=== PATIENT | male | born 1990 | race Caucasian/White ===

== ENCOUNTER 2017-08-08 01:32 | Emergency (ER) | payer OTHER ==
[2017-08-08 02:12] LABS: #Basophils 0.1 thou/uL (0.0-0.2); #Eosinphils 0.3 thou/uL (0.0-0.7); #Lymphocytes 3.4 thou/uL (1.20-3.40); #Monocytes 0.5 thou/uL (0.11-0.59); #Neutrophils 3.9 thou/uL (1.40-6.50); %Basophils 1.5 % (0.0-1.0); %Eosinophils 3.4 % (0.0-10.0); %Lymphocytes 41.1 % (21.0-51.0); %Monocytes 6.3 % (0.0-10.0); %Neutrophils 47.7 % (42.0-75.0); Hemoglobin 14.2 g/dL (14.0-18.0); Mean Corpuscular HGB CONC 32.6 g/dL (32.0-36.0); Mean Corpuscular Hemoglobin 29.8 pg (27.0-31.0); Mean Corpuscular Volume 91.2 fl (80.0-94.0); Mean Platelet Volume 8.1 fL (7.4-10.4); Platelet Count 199 thou/uL (130-400); RBC Distribution Width 11.4 % (11.5-14.5); Red Blood Cell (RBC) Count 4.77 mill/uL (4.70-6.10); White Blood Cell (WBC) Count 8.1 thou/uL (4.8-10.8)
[2017-08-08 02:13] LABS: ALT (SGPT) 13 U/L (8-55); AST (SGOT) 19 U/L (5-34); Albumin 4.7 g/dL (3.5-5.0); Alkaline Phosphatase 40 U/L (40-150); Anion Gap 15 mmol/L (10-20); BUN (Urea Nitrogen) 17 mg/dL (8.9-20.6); Bilirubin, Total 0.4 mg/dL (0.2-1.2); Calc. Creatinine Clearance 0 mL/min (70-130); Carbon Dioxide 26 mmol/L (22-29); Chloride 104 mmol/L (98-107); Estimated GFR-MDRD 78; Globulin 2.5 g/dL (2.4-3.5); Glucose 107 mg/dL (70-105); Potassium 3.6 mmol/L (3.5-5.1); Protein, Total 7.2 g/dL (6.0-8.3); Sodium 141 mmol/L (136-145)
[2017-08-08] MEDS ORDERED: Ketorolac Tromethamine 60 MG/2 ML VIAL ONE (03:14)
[2017-08-08] MEDS ORDERED: Cyclobenzaprine 10 MG TAB ONE (03:14)
[2017-08-08 04:31] LABS: Bilirubin Negative (Negative); Blood, Urine Negative (Negative); Clarity CLEAR (Clear); Glucose, Urine (Dipstick) Negative (Negative); Leukocyte Negative (Negative); Nitrite Negative (Negative); Protein, Urine (Dipstick) Negative (Neg-Trace); Specific Gravity, Urine 1.023 (1.002-1.036); Urobilinogen 0.2 mg/dL (0.2-1.0)
--- NOTE | 2017-08-11 17:50 | EKG ---
Test Reason : Blood Pressure : / mmHG Vent. Rate : 089 BPM Atrial Rate : 089 BPM P-R Int : 160 ms QRS Dur : 110 ms QT Int : 368 ms P-R-T Axes : 046 029 010 degrees QTc Int : 447 ms Normal sinus rhythm Possible Left atrial enlargement Incomplete right bundle branch block Borderline ECG Confirmed by LUPE GUEVARA D.O. ([id number]), subeditor WILNER HENRY ([id number] on 08/11/2017 5:48:21 PM Referred By: Confirmed By:LUPE GUEVARA D.O.
== END 2017-08-08 04:35 | disposition home or self-care (01) ==
LOC: ERS 01:32
DX: S39.012A Strain of muscle, fascia and tendon of lower back, initial encounter (principal)
CPT/HCPCS: 36415; 80053; 81003; 85025; 93005; 96372; J1885

== ENCOUNTER 2017-09-07 14:38 | Outpatient (CLI) | payer OTHER ==
[~2017-09-07 14:38] MED LIST: Magnevist 469MG/ML 20 ML VIAL ONE
--- NOTE | 2017-09-07 16:32 | MRI ---
BRAIN MRI WITH AND WITHOUT CONTRAST 09/07/17 CLINICAL HISTORY: Previously documented mass of fourth ventricle on preceding head CT 08/16/17. FINDINGS: there is an avidly enhancing soft tissue mass situated at the mid inferior aspect of the fourth ventr icle, measuring 1.5 cm craniocaudal 1.5 cm transverse x 12 mm AP. This does slightly expand the four th ventricle. No associated obstructive hydrocephalus is demonstrated. No significant parenchymal sig nal abnormalities. No susceptibility artifact is present intracranially. There is no acute territoria l infarction. Imaged skull base flow voids are maintained. 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 Primary considerations woul d include choroid plexus neoplasm, intraventricular meningioma or possibly ependymoma. Given location of this finding and the potential for ventricular obstruction, followup with neurosurgical consultat ion is warranted for further care. Telephone call placed to the patient's physician, Emily Conner at the time of interpretation, 1600 ho urs, 09/07/17. Code CR POS: EDY
== END 2017-09-07 14:39 | disposition home or self-care (01) ==
LOC: SCSMRI 14:38
PROVIDERS: ATTEND Family Medicine
DX: G93.9 Disorder of brain, unspecified (principal)
CPT/HCPCS: 70553; A9579

== ENCOUNTER 2018-04-02 13:58 | Outpatient (CLI) | payer OTHER ==
[~2018-04-02 13:58] MED LIST changes: +Gadobenate Dimeglumine 529 MG/1 ML (20ML VIAL) ONE; -Magnevist 469MG/ML 20 ML VIAL ONE
--- NOTE | 2018-04-02 15:36 | MRI ---
BRAIN MRI WITH AND WITHOUT CONTRAST: Date: 04/02/18 COMPARISON: 09/07/17. HISTORY: Follow-up tumor. TECHNIQUE: Brain MRI is performed with and without intravenous Gadolinium administration. Multisequential, multi planar imaging is performed. FINDINGS: Redemonstration of an avidly enhancing mass in the mid to inferior aspect of the fourth ventricle. Cu rrently, the mass measures 1.2 cm anterior posterior x 1.6 cm mediolateral x 1.7 cm craniocaudal. Pre viously, this mass measured 1.3 cm anterior posterior x 1.6 cm mediolateral x 1.3 cm craniocaudal. Sl ight interval increase in size, predominantly in the craniocaudal dimension. There is no significant change in terms of the ventricular system. Currently, there does not appear to be any hydrocephalus. No brain parenchymal mass, mass effect, or midline shift. Brain volume is age-appropriate. Cortical g ray-white matter differentiation is preserved. Central arterial flow-voids are maintained. Absent restricted diffusion. No evidence of parenchymal hemorrhage on the axial gradient echo sequence. There do appear to be some components of hemorrhage associated with the intraventricular lesion. Mild mucosal thickening of the sinuses. No significant white matter hyperintensities on the FLAIR seq uence. IMPRESSION: Intraventricular mass. Differential considerations include a choroid plexus neoplasm versus intravent ricular meningioma or possible ependymoma. Continued surveillance is recommended. POS: CET
== END 2018-04-02 13:59 | disposition home or self-care (01) ==
LOC: TBSIIMAG 13:58
PROVIDERS: ATTEND Neurological Surgery
DX: D49.6 Neoplasm of unspecified behavior of brain (principal); R22.0 Localized swelling, mass and lump, head
CPT/HCPCS: 70553; A9579